=== PATIENT | male | born 1965 | race Two or more races ===

== ENCOUNTER 2018-09-04 19:38 | Inpatient (IN) | payer MEDICARE, MEDICAID ==
[~2018-09-04] VITALS: Ht 167.6 cm; Wt 147.7 kg
[2018-09-04] MEDS ORDERED: ALBUTEROL/IPRATROPIUM 2.5MG/0.5MG, 3 ML NPPB SCH (20:00)
--- NOTE | 2018-09-04 20:08 | NUR ---
PT PRESENTED WITH C/O OF SOB THAT ONSET THIS AFTERNOON, VISITING FOR [place], STATES THAT HE HAS HAD A COUGH WELL, USES INHALER, DENIES H/X COPD. HAS CHEST PAIN WITH COUGH AND NOTES INCIDENT OF L ARM NUMBNESS ON WAY TO HOSPITAL, SINCE RESOLVED. MONITORS APPLIED, SIDERAILS UP X2, CALL LIGHT WITHIN REACH. AWAITING LAB AND XRAY RESULTS
[2018-09-04 20:09] LABS: BASOPHILS # (AUTO) 0.04 x10^3/uL (0-0.1); BASOPHILS % (AUTO) 0 % (0-1); EOSINOPHILS # (AUTO) 0.22 x10^3/uL (0-0.4); EOSINOPHILS % (AUTO) 2 % (1-7); LYMPHOCYTES % (AUTO) 31 % (22-44); MD NO; MEAN CORPUSCULAR HEMOGLOBIN 26.8 pg (27.5-34.5); MEAN CORPUSCULAR HGB CONC 32.9 g/dL (33.2-36.2); MEAN CORPUSCULAR VOLUME 81.4 fL (81-97); MEAN PLATELET VOLUME 8.7 fL (7.4-10.4); MONOCYTES % (AUTO) 8 % (2-9); NEUTROPHILS # (AUTO) 6.02 x10^3/uL (1.8-6.8); NEUTROPHILS % (AUTO) 59 % (42-75); PLATELET COUNT 279 x10^3/uL (130-400); RED BLOOD COUNT 4.68 x10^6/uL (4.38-5.82); RED CELL DISTRIBUTION WIDTH 15.7 % (9.4-14.8)
[2018-09-04] MEDS ORDERED: ALBUTEROL/IPRATROPIUM 2.5MG/0.5MG, 3 ML ONE (20:18)
[2018-09-04 20:21] LABS: ALBUMIN 3.7 g/dL (3.4-5.0); ANION GAP 9 mmol/L (5-15); CALCIUM 8.5 mg/dL (8.5-10.1); CHLORIDE 103 mmol/L (98-107); CREATININE 1.08 mg/dL (0.7-1.3)
[2018-09-04 20:25] LABS: TROPONIN I < 0.015 ng/mL (0.000-0.045)
[2018-09-04] MEDS ORDERED: ASPIRIN 81 MG TABLET CHEW ONE (20:42)
--- NOTE | 2018-09-04 20:44 | NUR ---
pt resting calmly, medicated per mar, monitors in place, call light within reach.
[2018-09-04] MEDS ORDERED: TAMS-11 PO (20:56)
[2018-09-04] MEDS ORDERED: FOSI40TA5 PO (20:56)
[2018-09-04] MEDS ORDERED: BACL20TA PO (20:56)
[2018-09-04] MEDS ORDERED: LIRA0.6P SC (20:56)
[2018-09-04] MEDS ORDERED: FLUO10CA7 PO (20:56)
[2018-09-04] MEDS ORDERED: CETI-237 PO (20:56)
[2018-09-04] MEDS ORDERED: INSULIN SQ (20:56)
[2018-09-04] MEDS ORDERED: ASPI-515 PO (20:56)
[2018-09-04] MEDS ORDERED: OXYC1TAB7 PO (20:56)
[2018-09-04] MEDS ORDERED: FURO40TA6 PO (20:56)
[2018-09-04] MEDS ORDERED: NIFE20CA PO (20:56)
[2018-09-04] MEDS ORDERED: METF500T17 PO (20:56)
[2018-09-04] MEDS ORDERED: OMEP-110 PO (20:56)
[2018-09-04] MEDS ORDERED: METO200T47 PO (20:56)
[2018-09-04] MEDS ORDERED: INSU100I34 SQ (20:56)
[2018-09-04] MEDS ORDERED: ALBU18HF INH (20:56)
[2018-09-04] MEDS ORDERED: ASPIRIN 81 MG TABLET CHEW PO ONE (21:00)
--- NOTE | 2018-09-04 21:27 | NUR ---
IV SITE STARTED, MONITORS IN PLACE, CALL LIGHT WITHIN REACH. AWAITING ROOM FOR TRANSFER
[2018-09-04] MEDS ORDERED: ONDANSETRON ODT 4 MG PO PRN (21:30)
[2018-09-04] MEDS ORDERED: POLYETHYLENE GLYCOL 17 GM PACKET PO PRN (21:30)
[2018-09-04] MEDS ORDERED: BISACODYL 10 MG SUPP PR PRN (21:30)
[2018-09-04] MEDS: ALBUTEROL SULFATE 2.5 MG/3 ML HHN SCH (21:30)
[2018-09-04] MEDS ORDERED: NITROGLYCERIN 0.4 MG BOTTLE (25 TABS) SL PRN (21:30)
[2018-09-04] MEDS ORDERED: morphine SULFATE 10 MG/ML, 1ML IVPush PRN (21:30)
[2018-09-04] MEDS ORDERED: ACETAMINOPHEN 325 MG TABLET PO PRN (21:30)
--- NOTE | 2018-09-04 21:45 | NUR ---
REPORT CALLED TO ALISHA KING, NOTIFIED RN WILL CALL ME BACK FOR REPORT SHE IS IN ROOM WITH A PT AT THIS TIME.
[2018-09-04 21:47] LABS: FREE T4 (FREE THYROXINE) 1.11 ng/dL (0.76-1.46); THYROID STIMULATING HORMONE 1.79 mIU/L (0.358-3.740)
[2018-09-04 22:28] VITALS: BP 141/87
[2018-09-04] MEDS: BACLOFEN 10 MG TABLET PO SCH (22:56)
[2018-09-04] MEDS: FUROSEMIDE 40 MG TABLET PO SCH (22:58)
[2018-09-04] MEDS: INSULIN LISPRO 100 UNITS/ML, PEN SQ-INSULIN SCH (23:01)
[2018-09-04] MEDS: SODIUM CHLORIDE FLUSH 10ML SYR IVF SCH (23:02)
[2018-09-04] MEDS: HEPARIN 5,000 UNITS/ML, 1ML SQ SCH (23:05)
[2018-09-04] MEDS ORDERED: INSU100I18 SC ×3 (23:14)
[2018-09-04] MEDS ORDERED: NAPR500T8 PO (23:37)
[2018-09-04] MEDS ORDERED: GABA300C10 PO (23:37)
[2018-09-05 02:33] LABS: BASOPHILS # (AUTO) 0.04 x10^3/uL (0-0.1); BASOPHILS % (AUTO) 0 % (0-1); EOSINOPHILS % (AUTO) 3 % (1-7); LYMPHOCYTES # (AUTO) 2.74 x10^3/uL (1-3.4); LYMPHOCYTES % (AUTO) 28 % (22-44); MD NO; MEAN CORPUSCULAR HEMOGLOBIN 26.4 pg (27.5-34.5); MEAN CORPUSCULAR HGB CONC 32.8 g/dL (33.2-36.2); MEAN CORPUSCULAR VOLUME 80.5 fL (81-97); MEAN PLATELET VOLUME 8.4 fL (7.4-10.4); MONOCYTES # (AUTO) 0.98 x10^3/uL (0.2-0.8); MONOCYTES % (AUTO) 10 % (2-9); NEUTROPHILS # (AUTO) 5.67 x10^3/uL (1.8-6.8); NEUTROPHILS % (AUTO) 58 % (42-75); PLATELET COUNT 256 x10^3/uL (130-400); RED BLOOD COUNT 4.54 x10^6/uL (4.38-5.82); RED CELL DISTRIBUTION WIDTH 15.8 % (9.4-14.8)
[2018-09-05 02:44] LABS: ALANINE AMINOTRANSFERASE 43 U/L (12-78); ALBUMIN 3.5 g/dL (3.4-5.0); ANION GAP 4 mmol/L (5-15); CALCIUM 8.5 mg/dL (8.5-10.1); CHLORIDE 103 mmol/L (98-107); CREATININE 0.91 mg/dL (0.7-1.3)
[2018-09-05 02:47] LABS: ALKALINE PHOSPHATASE 139 U/L (45-117); BILIRUBIN,TOTAL 0.4 mg/dL (0.2-1.0); TOTAL PROTEIN 7.5 g/dL (6.4-8.2)
[2018-09-05 03:02] LABS: TROPONIN I < 0.015 ng/mL (0.000-0.045)
[2018-09-05] MEDS: ALBUTEROL SULFATE 2.5 MG/3 ML HHN SCH ×4 (03:30→22:24)
[2018-09-05 04:45] VITALS: BP 161/86
[2018-09-05] MEDS: INSULIN LISPRO 100 UNITS/ML, PEN SQ-INSULIN SCH ×4 (04:54→22:30)
[2018-09-05 08:00] VITALS: BP 151/90
[2018-09-05 08:29] LABS: TROPONIN I < 0.015 ng/mL (0.000-0.045)
[2018-09-05] MEDS ORDERED: REGADENOSON 0.4 MG/5 ML SYRINGE ONE (08:46)
[2018-09-05] MEDS: SENNA/DOCUSATE TABLET PO SCH (09:00)
[2018-09-05] MEDS: FLUOXETINE 10 MG CAP PO SCH (11:03)
[2018-09-05] MEDS: FOSINOPRIL 20MG TABLET PO SCH (11:03)
[2018-09-05] MEDS: ASPIRIN 81 MG TABLET EC PO SCH (11:03)
[2018-09-05] MEDS: TAMSULOSIN 0.4 MG CAP.ER.24H PO SCH (11:03)
[2018-09-05] MEDS: HEPARIN 5,000 UNITS/ML, 1ML SQ SCH ×2 (11:04→17:47)
[2018-09-05] MEDS: CETIRIZINE 10 MG TABLET PO SCH (11:04)
[2018-09-05] MEDS: METOPROLOL SUCCINATE 100 MG TAB.ER.24H PO SCH (11:04)
[2018-09-05] MEDS: FUROSEMIDE 40 MG TABLET PO SCH ×2 (11:04→22:26)
[2018-09-05] MEDS: OMEPRAZOLE 20 MG CAPSULE.DR PO SCH (11:04)
[2018-09-05] MEDS: BACLOFEN 10 MG TABLET PO SCH ×3 (11:06→22:27)
[2018-09-05 14:00] VITALS: BP 158/74
[2018-09-05] MEDS: SODIUM CHLORIDE FLUSH 10ML SYR IVF SCH ×2 (21:00→22:25)
[2018-09-05 21:02] VITALS: BP 146/89
[2018-09-06 01:15] VITALS: BP 137/81
[2018-09-06] MEDS: ALBUTEROL SULFATE 2.5 MG/3 ML HHN SCH (04:00)
[2018-09-06] MEDS: INSULIN LISPRO 100 UNITS/ML, PEN SQ-INSULIN SCH ×2 (05:00→12:15)
[2018-09-06 05:44] LABS: LDL/HDL RATIO 2.6 (0.5-3.0)
[2018-09-06] MEDS: HEPARIN 5,000 UNITS/ML, 1ML SQ SCH ×2 (06:05→12:15)
[2018-09-06 07:32] VITALS: BP 138/72
[2018-09-06] MEDS: SENNA/DOCUSATE TABLET PO SCH (09:00)
[2018-09-06] MEDS: SODIUM CHLORIDE FLUSH 10ML SYR IVF SCH (09:00)
[2018-09-06] MEDS: CETIRIZINE 10 MG TABLET PO SCH (09:00)
[2018-09-06] MEDS: FLUOXETINE 10 MG CAP PO SCH (10:06)
[2018-09-06] MEDS: FOSINOPRIL 20MG TABLET PO SCH (10:07)
[2018-09-06] MEDS: BACLOFEN 10 MG TABLET PO SCH (10:07)
[2018-09-06] MEDS: FUROSEMIDE 40 MG TABLET PO SCH (10:07)
[2018-09-06] MEDS: TAMSULOSIN 0.4 MG CAP.ER.24H PO SCH (10:07)
[2018-09-06] MEDS: OMEPRAZOLE 20 MG CAPSULE.DR PO SCH (10:07)
[2018-09-06] MEDS: METOPROLOL SUCCINATE 100 MG TAB.ER.24H PO SCH (10:07)
[2018-09-06] MEDS: ASPIRIN 81 MG TABLET EC PO SCH (10:08)
[2018-09-06 12:45] VITALS: BP 121/77
== END 2018-09-06 16:23 | disposition home or self-care (01) | DRG 153 ==
LOC: ED 21:04 → EDIP 21:21 → 5SO 22:11
PROVIDERS: ADMIT Internal Medicine; ATTEND Internal Medicine
DX: J06.9 Acute upper respiratory infection, unspecified (principal); Z68.43 Body mass index [BMI] 50.0-59.9, adult; R07.9 Chest pain, unspecified; D64.9 Anemia, unspecified; E11.65 Type 2 diabetes mellitus with hyperglycemia; E66.01 Morbid (severe) obesity due to excess calories; E78.00 Pure hypercholesterolemia, unspecified; E78.5 Hyperlipidemia, unspecified; G47.30 Sleep apnea, unspecified; R00.0 Tachycardia, unspecified; I11.9 Hypertensive heart disease without heart failure; Z79.4 Long term (current) use of insulin; Z80.3 Family history of malignant neoplasm of breast; Z87.891 Personal history of nicotine dependence; Z90.49 Acquired absence of other specified parts of digestive tract
CPT/HCPCS: 36415; 71046; 78452; 80048; 80053; 80061; 82040; 82962; 83880; 84439; 84443; 84484; 85025; 85379; 93005; 93017; 93306; 94640; G0378; J1644; J2785; J7613; J7620; A9502; C9898; J1815